=== PATIENT | female | born 1970 | race Two or more races ===

== ENCOUNTER 2019-02-21 15:57 | Emergency (ER) | payer OTHER ==
[~2019-02-21] VITALS: Ht 172.7 cm; Wt 71.2 kg
--- NOTE | 2019-02-21 17:15 | NUR ---
SEEN AND EXAMINED BY GE NOONAN
[2019-02-21 18:05] VITALS: BP 145/87
--- NOTE | 2019-02-21 18:07 | NUR ---
Patient discharged to home in stable condition. Written and verbal after care instructions given. Patient verbalizes understanding of instruction.
== END 2019-02-21 18:23 | disposition home or self-care (01) ==
LOC: ER 16:01
DX: M25.511 Pain in right shoulder (principal); M25.531 Pain in right wrist; W01.0XXA Fall on same level from slipping, tripping and stumbling without subsequent striking against object, initial encounter; Y93.89 Activity, other specified; Y92.89 Other specified places as the place of occurrence of the external cause; Y99.8 Other external cause status
CPT/HCPCS: 73030-TC; 73110

== ENCOUNTER 2019-02-24 15:41 | Emergency (ER) | payer OTHER ==
[~2019-02-24] VITALS: Ht 172.7 cm; Wt 86.2 kg
[2019-02-24 15:50] VITALS: BP 155/103
--- NOTE | 2019-02-24 16:15 | NUR ---
Patient discharged to home in stable condition. Written and verbal after care instructions given. Patient verbalizes understanding of instruction.
== END 2019-02-24 16:15 | disposition home or self-care (01) ==
LOC: ER 15:50
DX: M25.531 Pain in right wrist (principal); M25.511 Pain in right shoulder

== ENCOUNTER 2020-06-06 03:00 | Emergency (ER) | payer OTHER ==
[~2020-06-06] VITALS: Ht 167.6 cm; Wt 90.7 kg
--- NOTE | 2020-06-06 03:04 | NUR ---
bib for c/o mid back pain [id number] denied any fall, trauma, injury or accident, pt aaox4, -sob, nad noted, vss, pending md rai
[2020-06-06 03:39] LABS: BASOPHILS % (AUTO) 0.7 % (0.0-2.0); EOSINOPHILS % (AUTO) 5.4 % (0.0-6.0); HEMATOCRIT 43 % (33-45); HEMOGLOBIN 14.8 g/dL (11.5-14.8); LYMPHOCYTES # (AUTO) 1.2 /CMM (0.8-4.8); LYMPHOCYTES % (AUTO) 17.1 % (20.0-44.0); MEAN CORPUSCULAR HGB CONC 34 g/dl (31.0-36.0); MEAN CORPUSCULAR VOLUME 92 fL (82-100); MONOCYTES # (AUTO) 0.5 /CMM (0.1-1.30); MONOCYTES % (AUTO) 6.7 % (2.0-12.0); NEUTROPHILS # (AUTO) 4.8 /CMM (1.8-8.9); NEUTROPHILS % (AUTO) 70.1 % (43.0-81.0); PLATELET COUNT (AUTO) 192 /CMM (150-450); RED BLOOD CELL COUNT(AUTO) 4.74 MIL/uL (4.0-5.2); WHITE BLOOD COUNT (AUTO) 6.9 K/uL (4.3-11.0)
[2020-06-06 03:48] LABS: CALCIUM, SERUM 9.6 mg/dL (8.5-10.1); CARBON DIOXIDE 24 mmol/L (21-32); CHLORIDE 101 mmol/L (98-107); CREATININE 0.9 mg/dL (0.6-1.3); GLUCOSE 114 mg/dL (74-106); POTASSIUM 3.8 mmol/L (3.5-5.1); SODIUM SERUM 137 mmol/L (136-145); UREA NITROGEN, BLOOD 21 mg/dL (7-18)
[2020-06-06] MEDS ORDERED: KETOROLAC TROMETHAMINE 15 MG/ML VIAL ONE (04:11)
[2020-06-06] MEDS: KETOROLAC TROMETHAMINE INJ 30 MG/ML VIAL IV ONE (04:16)
--- NOTE | 2020-06-06 05:28 | NUR ---
Patient discharged to home in stable condition. Written and verbal after care instructions given. Patient verbalizes understanding of instruction. IV removed. Catheter intact and site benign. Pressure and 4x4 applied to site. No bleeding noted.
[2020-06-06 05:31] VITALS: BP 159/90
== END 2020-06-06 05:32 | disposition home or self-care (01) ==
LOC: ER 03:02
DX: M54.6 Pain in thoracic spine (principal); M54.5 Low back pain; I10 Essential (primary) hypertension
CPT/HCPCS: 36415; 71045; 80048; 84484; 85025; 93005; 96374; 99285; J1885

== ENCOUNTER → 2020-08-10 | Emergency (ER) | payer OTHER ==
[~2020-08-10] VITALS: Ht 170.2 cm; Wt 77.1 kg
[2020-08-10 15:50] VITALS: BP 170/98
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
== END | disposition home or self-care (01) ==
LOC: ER 15:42
DX: S00.83XA Contusion of other part of head, initial encounter (principal); I10 Essential (primary) hypertension; Z90.89 Acquired absence of other organs; Z98.890 Other specified postprocedural states; W22.8XXA Striking against or struck by other objects, initial encounter; Y93.89 Activity, other specified; Y92.89 Other specified places as the place of occurrence of the external cause; Y99.8 Other external cause status
CPT/HCPCS: 70486-TC

== ENCOUNTER → 2021-05-01 | Emergency (ER) | payer OTHER ==
[~2021-05-01] VITALS: Ht 170.2 cm; Wt 90.7 kg
[~2021-05-01] MED LIST: KETOROLAC TROMETHAMINE INJ 30 MG/ML VIAL IM ONE; KETOROLAC TROMETHAMINE INJ 30 MG/ML VIAL ONE
[2021-05-01 11:55] VITALS: BP 157/92
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
--- NOTE | 2021-05-01 12:13 | NUR ---
X-RAY TECH AT THE BEDSIDE
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
== END | disposition home or self-care (01) ==
LOC: ER 11:50
DX: M25.521 Pain in right elbow (principal); M25.421 Effusion, right elbow; I10 Essential (primary) hypertension; Z90.89 Acquired absence of other organs; Z98.890 Other specified postprocedural states; W18.39XA Other fall on same level, initial encounter; Y93.89 Activity, other specified; Y92.34 Swimming pool (public) as the place of occurrence of the external cause; Y99.8 Other external cause status
CPT/HCPCS: 73060; 73080; 73090; 96372; 99284; J1885

== ENCOUNTER 2023-05-02 14:18 | Emergency (ER) | payer OTHER ==
[~2023-05-02] VITALS: Ht 165.1 cm; Wt 86.2 kg
[2023-05-02 14:34] VITALS: BP 142/93; TEMP 98.1
[2023-05-02] MEDS ORDERED: ACYC-108 PO (14:47)
[2023-05-02 14:53] VITALS: O2SAT 99
== END 2023-05-02 14:53 | disposition home or self-care (01) ==
LOC: ER 14:22
DX: B02.9 Zoster without complications (principal); I10 Essential (primary) hypertension; Z79.899 Other long term (current) drug therapy; Z90.49 Acquired absence of other specified parts of digestive tract; Z98.890 Other specified postprocedural states